=== PATIENT | female | born 2000 | race Caucasian/White ===

== ENCOUNTER 2021-07-24 09:00 | Observation (INO) ==
[2021-07-24] MEDS ORDERED: KETOROLAC TROMETHAMINE 15 MG/ML VIAL IV ONE (10:37)
[2021-07-24] MEDS ORDERED: SODIUM CHLORIDE 0.9% 1000ML 1,000 ML IV ONE (10:37)
--- NOTE | 2021-07-24 10:41 | Emergency Department Note ---
Impression & Plan Pulmonary embolism, Tachycardia, Embolism, pulmonary with infarction ED Provider Note NAME: ABBIE Mena LESSER AGE: 21 SEX: F : 2000 ARRIVES VIA: Walk-In INFORMANT: Patient ED PROVIDER(S): Jack Murguia DO CHIEF COMPLAINT: back pain HPI: Patient is a 21-year-old who presents to the ER for left upper back pain. This started yesterday and has been worsening. She notes this does cause her some shortness of breath. Its worse when she breathes. She denies any lower pain. Does not change with twisting turning or bending. Pain is sharp in nature. No nausea or vomiting. No dysuria urgency or frequency. No other exacerbating or remitting factors. She does admit to a cough, sore throat and some congestion which have been present off and on throughout the past several days. ROS: See above HPI for pertinent positives & negatives. A total of 10 systems reviewed and were otherwise negative. PAST MEDICAL HISTORY:See Below PAST SURGICAL HISTORY:See Below FAMILY HISTORY:See Below SOCIAL HISTORY:See Below HOME MEDICATIONS:See Below ALLERGIES:See Below VITALS:See Below PHYSICAL EXAMINATION: GENERAL: Sitting up in bed, alert, well appearing, well nourished, no distress, non-toxic EYE EXAM: normal conjunctiva. OROPHARYNX: no exudate, no erythema, lips, buccal mucosa, and tongue normal and mucous membranes are moist NECK: supple, no nuchal rigidity, no adenopathy, non-tender LUNGS: Clear to auscultation. Normal chest wall mechanics HEART: no murmurs, S1 normal and S2 normal ABDOMEN: abdomen soft, non-tender, normo-active bowel sounds, no masses, no rebound or guarding. BACK: Back is symmetrical on inspection and there is no deformity, no midline tenderness, no CVA tenderness. UPPER EXTREMITIES: upper extremities are grossly normal. LOWER EXTREMITIES: No pitting edema. Calves are equal bilateral NEURO EXAM: Normal sensorium, cranial nerves II-XII grossly intact, normal speech, no gross weakness of arms, no gross weakness of legs. No drift. Finger to nose intact. Gross sensation intact. MEDICAL DECISION MAKING: Patient is a 21-year-old female who presents the ER for left-sided chest pain including back pain. IV was established blood work was obtained. Labs show chest 14,000. No anemia. Dimer was elevated at 4k. BMP along with LFT's, bilirubin, troponin, was on unremarkable. UA was clean. was negative. Covid was negative. CT angio of the chest shows PEs. Patient was tachycardic initially upon presentation with a heart rate in the 120s. She was given IV fluids. She had no bleeding risk factors and this was discussed with her at bedside. She was placed on a heparin drip and given a heparin bolus. She was updated bedside and discussed with the hospitalist admitted for further work-up. Triage Nursing notes reviewed. Limited review of prior medical records performed Vital Signs: reviewed and remarkable for tachy Differential diagnosis: Differential diagnoses includes but is not limited to lumbar radiculopathy, kid piotr stone, muscle strain, facture, cauda equina, mass, and disc herniation. ER treatment provided: See below Diagnostics interpreted by me: ECG: Sinus tachycardia rate of 114 Normal axis QTC 443 Cardiac Monitoring: An order was placed for continuous cardiac monitoring. The monitor shows a rate of 110 with sinus rhythm. Laboratory studies: As stated above and show below. Imaging studies: CT angios shows PEs Consultation(s): Discussed with Jarred Ramos for admission Procedures: none Critical Care: I have personally spent 32 minutes of critical care time in the direct management of this patient. This includes bedside care, interpretation of diagnostic studies, and testing, discussion with consultants, patient, and family members, and other required patient management activities. This 32 minutes is in excess of all separately billable procedures.3 Past Med/Surg History Medical History PCOS (polycystic ovarian syndrome) Family History Aunt Myocardial infarction Occurred in early 40s Social History Smoking Status: Never smoker Feels Safe at Home: Yes Allergies Allergies Allergy/AdvReac Type Severity Reaction Status Date / Time No Known Allergies Allergy Unverified 07/24/21 11:01 Home Meds Home Medications Medication Instructions Recorded Confirmed ibuprofen 200 mg tablet 400 mg PO Q6H PRN 07/24/21 07/24/21 norethindrone 1 mg-ethin. 1 cap PO PM 07/24/21 07/24/21 estradiol 20 mcg (24)-iron 75 mg (4) capsule (Gemmily) Results & Data (ED) Vital Signs Vital Signs - 24 hr 07/24/21 09:13 07/24/21 11:04 07/24/21 12:53 Temperature 37.3 C Temperature Source Oral Pulse Rate 128 H Pulse Rate [Apical] 91 H 112 H Respiratory Rate 16 18 18 Respiratory Effort / Characteristics Non-Labored Spontaneous Respiratory Depth Normal Blood Pressure 125/81 Blood Pressure [Left Arm] 111/76 111/76 Blood Pressure Mean 95 Blood Pressure Mean [Left Arm] 87 87 Blood Pressure Position Sitting Pulse Oximetry 98 98 98 Oxygen Delivery Method Room Air Room Air Sepsis Recent Fever Within 48 Hours No Sepsis New/Unexplained Change in Mental Status N/A Sepsis Action Taken by Nursing No Action Required Laboratory Data Result diagrams: 07/24/21 11:00 07/24/21 11:00 Lab Results 07/24/21 07/24/21 07/24/21 Range/Units 10:54 11:00 11:00 WBC 14.82 H (4.8-10.8) K/uL RBC 5.04 (4.2-5.4) M/uL Hgb 14.8 (12.0-16.0) g/dL Hct 43.4 (37-47) % MCV 86.1 (80-100) fL MCH 29.4 (25-34) pg MCHC 34.1 (32-36) g/dL RDW Std Deviation 41.9 (36.4-46.3) fL RDW Coeff of Radha 13.3 (11.5-14.5) % Plt Count 348 (130-400) K/uL MPV 9.9 (7.4-10.4) fL Immature Gran % (Auto) 0.2 % Neut % (Auto) 75.2 % Lymph % (Auto) 17.8 % Esmeralda % (Auto) 6.3 % Eos % (Auto) 0.3 % Baso % (Auto) 0.2 % Neut # (Auto) 11.14 H (1.4-6.5) K/uL Lymph # (Auto) 2.64 (1.2-3.4) K/uL Esmeralda # (Auto) 0.93 H (0.11-0.59) K/uL Eos # (Auto) 0.05 (0-0.5) K/uL Baso # (Auto) 0.03 (0-0.2) K/uL Immature Gran # (Auto) 0.03 H (0.00-0.02) K/uL APTT 27.1 (21.0-31.0) Seconds PTT Ratio 1.0 D-Dimer 4190 H* (0-500) ug/L FEU Sodium (136-145) mmol/L Potassium (3.5-5.1) mmol/L Chloride (98-107) mmol/L Carbon Dioxide (21-32) mmol/L Anion Gap (3-11) BUN (7-18) mg/dl Creatinine (0.6-1.2) mg/dl Est Cr Clr Drug Dosing ml/min Est GFR ( Amer) ml/min Est GFR (Non-Af Amer) ml/min BUN/Creatinine Ratio (10-20) Glucose (70-99) mg/dl Calcium (8.5-10.1) mg/dl Total Bilirubin (0.2-1) mg/dl AST (15-37) U/L ALT (12-78) U/L Alkaline Phosphatase (45-117) U/L Troponin I (0-0.045) ng/ml Total Protein (6.4-8.2) gm/dl Albumin (3.4-5.0) gm/dl Globulin (2.5-4.0) gm/dl Albumin/Globulin Ratio (0.9-2) Lipase (73-393) U/L Urine Color Yellow Urine Appearance Clear (Clear) Urine pH 6.0 (4.5-7.5) Ur Specific [place] 1.016 (1.000-1.030) Urine Protein Negative (Negative) Urine Glucose (UA) Negative (Negative) Urine Ketones Negative (Negative) Urine Blood Negative (Negative) Urine Nitrite Negative (Negative) Urine Bilirubin Negative (Negative) Urine Urobilinogen Negative (Negative) Ur Leukocyte Esterase Negative (Negative) POC Ur Test (NEG) COVID-19 Eval Order SARS-CoV-2 (PCR) (Negative) 07/24/21 07/24/21 07/24/21 Range/Units 11:00 12:07 12:07 WBC (4.8-10.8) K/uL RBC (4.2-5.4) M/uL Hgb (12.0-16.0) g/dL Hct (37-47) % MCV (80-100) fL MCH (25-34) pg MCHC (32-36) g/dL RDW Std Deviation (36.4-46.3) fL RDW Coeff of Radha (11.5-14.5) % Plt Count (130-400) K/uL MPV (7.4-10.4) fL Immature Gran % (Auto) % Neut % (Auto) % Lymph % (Auto) % Esmeralda % (Auto) % Eos % (Auto) % Baso % (Auto) % Neut # (Auto) (1.4-6.5) K/uL Lymph # (Auto) (1.2-3.4) K/uL Esmeralda # (Auto) (0.11-0.59) K/uL Eos # (Auto) (0-0.5) K/uL Baso # (Auto) (0-0.2) K/uL Immature Gran # (Auto) (0.00-0.02) K/uL APTT (21.0-31.0) Seconds PTT Ratio D-Dimer (0-500) ug/L FEU Sodium 137 (136-145) mmol/L Potassium 3.8 (3.5-5.1) mmol/L Chloride 106 (98-107) mmol/L Carbon Dioxide 27 (21-32) mmol/L Anion Gap 4.0 (3-11) BUN 7 (7-18) mg/dl Creatinine 0.86 (0.6-1.2) mg/dl Est Cr Clr Drug Dosing 90.1 ml/min Est GFR ( Amer) 112.7 ml/min Est GFR (Non-Af Amer) 97.3 ml/min BUN/Creatinine Ratio 8.0 L (10-20) Glucose 99 (70-99) mg/dl Calcium 9.3 (8.5-10.1) mg/dl Total Bilirubin 0.4 (0.2-1) mg/dl AST 12 L (15-37) U/L ALT 13 (12-78) U/L Alkaline Phosphatase 92 (45-117) U/L Troponin I < 0.015 (0-0.045) ng/ml Total Protein 8.6 H (6.4-8.2) gm/dl Albumin 3.2 L (3.4-5.0) gm/dl Globulin 5.4 H (2.5-4.0) gm/dl Albumin/Globulin Ratio 0.6 L (0.9-2) Lipase 96 (73-393) U/L Urine Color Urine Appearance (Clear) Urine pH (4.5-7.5) Ur Specific [place] (1.000-1.030) Urine Protein (Negative) Urine Glucose (UA) (Negative) Urine Ketones (Negative) Urine Blood (Negative) Urine Nitrite (Negative) Urine Bilirubin (Negative) Urine Urobilinogen (Negative) Ur Leukocyte Esterase (Negative) POC Ur Test (NEG) COVID-19 Eval Order Covid19 at [facility] SARS-CoV-2 (PCR) NEGATIVE (Negative) 07/24/21 Range/Units Unknown WBC (4.8-10.8) K/uL RBC (4.2-5.4) M/uL Hgb (12.0-16.0) g/dL Hct (37-47) % MCV (80-100) fL MCH (25-34) pg MCHC (32-36) g/dL RDW Std Deviation (36.4-46.3) fL RDW Coeff of Radha (11.5-14.5) % Plt Count (130-400) K/uL MPV (7.4-10.4) fL Immature Gran % (Auto) % Neut % (Auto) % Lymph % (Auto) % Esmeralda % (Auto) % Eos % (Auto) % Baso % (Auto) % Neut # (Auto) (1.4-6.5) K/uL Lymph # (Auto) (1.2-3.4) K/uL Esmeralda # (Auto) (0.11-0.59) K/uL Eos # (Auto) (0-0.5) K/uL Baso # (Auto) (0-0.2) K/uL Immature Gran # (Auto) (0.00-0.02) K/uL APTT (21.0-31.0) Seconds PTT Ratio D-Dimer (0-500) ug/L FEU Sodium (136-145) mmol/L Potassium (3.5-5.1) mmol/L Chloride (98-107) mmol/L Carbon Dioxide (21-32) mmol/L Anion Gap (3-11) BUN (7-18) mg/dl Creatinine (0.6-1.2) mg/dl Est Cr Clr Drug Dosing ml/min Est GFR ( Amer) ml/min Est GFR (Non-Af Amer) ml/min BUN/Creatinine Ratio (10-20) Glucose (70-99) mg/dl Calcium (8.5-10.1) mg/dl Total Bilirubin (0.2-1) mg/dl AST (15-37) U/L ALT (12-78) U/L Alkaline Phosphatase (45-117) U/L Troponin I (0-0.045) ng/ml Total Protein (6.4-8.2) gm/dl Albumin (3.4-5.0) gm/dl Globulin (2.5-4.0) gm/dl Albumin/Globulin Ratio (0.9-2) Lipase (73-393) U/L Urine Color Urine Appearance (Clear) Urine pH (4.5-7.5) Ur Specific [place] (1.000-1.030) Urine Protein (Negative) Urine Glucose (UA) (Negative) Urine Ketones (Negative) Urine Blood (Negative) Urine Nitrite (Negative) Urine Bilirubin (Negative) Urine Urobilinogen (Negative) Ur Leukocyte Esterase (Negative) POC Ur Test NEG (NEG) COVID-19 Eval Order SARS-CoV-2 (PCR) (Negative) Administered Medications Heparin Sodium/Dextrose (Heparin Sodium/Dextrose) 25,000 units in 500 mls @ 14 mls/hr IV .Q24H [facility]; Protocol Stop: 08/23/21 12:29 Last Admin: 07/24/21 12:44 Dose: 700 units/hr, 14 mls/hr Documented by: [id number] Cosigned by: [id number] Discontinued Medications Heparin Sodium (Porcine) (Heparin Sod (Porcine) 1000 Unit/Ml) 3,000 units IV NOW ONE Stop: 07/24/21 12:46 Last Admin: 07/24/21 12:44 Dose: 3,000 units Documented by: [id number] Cosigned by: [id number] Sodium Chloride (Nss 1000ml) 1,000 mls @ 999 mls/hr IV .Q1H1M ONE Stop: 07/24/21 11:37 Last Admin: 07/24/21 11:02 Dose: 999 mls/hr Documented by: [id number] Ioversol (Optiray 320 125ml) 120 ml IV ONCE ONE Stop: 07/24/21 11:48 Last Admin: 07/24/21 11:48 Dose: 120 ml Documented by: [id number] Ketorolac Tromethamine (Ketorolac Tromethamine 15 Mg/Ml Vial) 15 mg IV NOW ONE Stop: 07/24/21 10:38 Last Admin: 07/24/21 11:02 Dose: 15 mg Documented by: [id number] Ondansetron HCl (Ondansetron Inj 2 Mg/Ml 2 Ml Vial) 4 mg IV NOW STA Stop: 07/24/21 11:05 Last Admin: 07/24/21 11:37 Dose: Not Given Documented by: [id number] Imaging Data Radiologist's Impression: Chest X-Ray 07/24/21 10:38 XR chest 1V portable HISTORY: Atypical Chest Pain COMPARISON: None. FINDINGS: Mild S-shaped scoliosis of the thoracolumbar spine. The lungs are clear. The heart is normal in size. No pleural effusions. No pneumothorax. IMPRESSION: 1. No acute process within the chest. 2. S-shaped scoliosis. ACT 112: Negative or not required by law. Electronically signed by: Maurice Ochoa M.D. 07/24/2021 11:10 AM Chest CTA 07/24/21 11:33 CT angio chest PE protocol CT DOSE: 226.11 mGy.cm HISTORY: 21 years-old Female with sob +dd. Acute shortness of breath with elevated d-dimer TECHNIQUE: Multiple CTA images of the chest were obtained after the intravenous administration of 120 ml Optiray. Coronal and sagittal MIPS were obtained from the axial data set and were submitted for review. All measurements were obtained according to NASCET criteria. A dose lowering technique was utilized adhering to the principles of ALARA. COMPARISON: Chest radiograph of same day FINDINGS: CTA: Lobar, segmental and subsegmental pulmonary emboli of the left upper and lower lobes. No saddle embolus or definite right-sided pulmonary emboli identified. No evidence of right heart strain. Normal thoracic aorta.Heart size is normal. CT CHEST: Unremarkable thyroid. Residual thymic tissue of the anterior mediastinum. No adenopathy. Trace left pleural effusion. No pneumothorax or overt pulmonary edema. Minimal left lung base atelectasis. Subsegmental consolidation of the inferior segment lingula on image 32 series 4. The central airways are patent. The liver is enlarged with hepatic steatosis. The spleen is upper limits of normal in size. Unremarkable soft tissues. No acute fracture. Mid thoracic dextroscoliosis. IMPRESSION: 1. Lobar, segmental and subsegmental pulmonary emboli of the left upper and l ower lobes. 2. Trace left pleural effusion with mild left lung base atelectasis. 3. Questioned developing pulmonary infarct of the inferior segment lingula. 4. Hepatomegaly with hepatic steatosis. ACT 112: Negative or not required by law. The above report was generated using voice recognition software. It may contain grammatical, syntax or spelling errors. Electronically signed by: Justino Apple M.D. 07/24/2021 12:03 PM Discharge Plan Visit Data Chief Complaint: Back Injury/Pain Stated Complaint: BACK PAIN, RADIATES WITH INHALATION ED Provider: Jack Murguia Discharge Problem: Pulmonary embolism, Tachycardia, Embolism, pulmonary with infarction Patient Disposition: Admitted As Inpatient Forms Stand Alone Forms: [facility] Prescriptions Prescriptions: No Action norethindrone-e.estradiol-iron [Gemmily] 1 mg-20 mcg (24)/75 mg (4) Capsule 1 cap PO PM RF: 0 ibuprofen 200 mg Tablet 400 mg PO Q6H PRN (Reason: Pain) RF: 0 Referrals Referrals: PCP,NO [Physician] -
[2021-07-24] MEDS ORDERED: ONDANSETRON INJ 2 MG/ML 2 ML VIAL IV STA (11:04)
--- NOTE | 2021-07-24 11:11 | XRay Report ---
XR chest 1V portable HISTORY: Atypical Chest Pain COMPARISON: None. FINDINGS: Mild S-shaped scoliosis of the thoracolumbar spine. The lungs are clear. The heart is brian l in size. No pleural effusions. No pneumothorax. IMPRESSION: 1. No acute process within the chest. 2. S-shaped scoliosis. ACT 112: Negative or not required by law. Electronically signed by: Maurice Ochoa M.D. 07/24/2021 11:10 AM
[2021-07-24 11:19] LABS: Partial Thromboplastin Time 27.1 Seconds (21.0-31.0)
[2021-07-24 11:21] LABS: Appearance Urine Clear (Clear); Bilirubin Urine Negative (Negative); Blood Urine Negative (Negative); Color Urine Yellow; Glucose Urine UA Negative (Negative); Ketones Urine Negative (Negative); Leukocyte Esterase Urine Negative (Negative); Nitrite Urine Negative (Negative); Protein Urine Negative (Negative); Specific Gravity Urine 1.016 (1.000-1.030); Urobilinogen Urine Negative (Negative)
[2021-07-24 11:25] LABS: Alanine Aminotransferase 13 U/L (12-78); Albumin Level 3.2 gm/dl (3.4-5.0); Aspartate Aminotransferase 12 U/L (15-37); Blood Urea Nitrogen 7 mg/dl (7-18); Calcium 9.3 mg/dl (8.5-10.1); Carbon Dioxide 27 mmol/L (21-32); Chloride 106 mmol/L (98-107); Creatinine Clr Calc Pharmacy 90.1 ml/min; Est GFR (African American) 112.7 ml/min; Est GFR (Non-African American) 97.3 ml/min; Glucose 99 mg/dl (70-99); Lipase 96 U/L (73-393); Potassium 3.8 mmol/L (3.5-5.1); Sodium 137 mmol/L (136-145)
[2021-07-24 11:27] LABS: Basophils # (auto) 0.03 K/uL (0-0.2); Basophils % (auto) 0.2 %; Eosinophils # (auto) 0.05 K/uL (0-0.5); Eosinophils % (auto) 0.3 %; Hematocrit (blood only) 43.4 % (37-47); Hemoglobin 14.8 g/dL (12.0-16.0); Immature Granulocytes # (auto) 0.03 K/uL (0.00-0.02); Immature Granulocytes % (auto) 0.2 %; Lymphocytes # (auto) 2.64 K/uL (1.2-3.4); Lymphocytes % (auto) 17.8 %; Mean Corpuscular Hemoglobin 29.4 pg (25-34); Mean Corpuscular Hgb Conc 34.1 g/dL (32-36); Mean Corpuscular Volume 86.1 fL (80-100); Mean Platelet Volume 9.9 fL (7.4-10.4); Monocytes # (auto) 0.93 K/uL (0.11-0.59); Monocytes % (auto) 6.3 %; Neutrophils # (auto) 11.14 K/uL (1.4-6.5); Neutrophils % (auto) 75.2 %; Platelet Count 348 K/uL (130-400); RDW Coefficient of Variation 13.3 % (11.5-14.5); RDW Standard Deviation 41.9 fL (36.4-46.3); Red Blood Count 5.04 M/uL (4.2-5.4); White Blood Count 14.82 K/uL (4.8-10.8)
[2021-07-24 11:30] LABS: Albumin Globulin Ratio 0.6 (0.9-2); Alkaline Phosphatase 92 U/L (45-117); Bilirubin,Total 0.4 mg/dl (0.2-1); Globulin 5.4 gm/dl (2.5-4.0); Total Protein 8.6 gm/dl (6.4-8.2); Troponin I < 0.015 ng/ml (0-0.045)
[2021-07-24 11:32] LABS: D Dimer 4190 ug/L FEU (0-500)
[2021-07-24] MEDS ORDERED: OPTIRAY 320 125ml IV ONE (11:47)
--- NOTE | 2021-07-24 12:05 | CT Scan Report ---
CT angio chest PE protocol CT DOSE: 226.11 mGy.cm HISTORY: 21 years-old Female with sob +dd. Acute shortness of breath with elevated d-dimer TECHNIQUE: Multiple CTA images of the chest were obtained after the intravenous administration of 120 ml Optiray. Coronal and sagittal MIPS were obtained from the axial data set and were submitted for review. All measurements were obtained according to NASCET criteria. A dose lowering technique was u tilized adhering to the principles of ALARA. COMPARISON: Chest radiograph of same day FINDINGS: CTA: Lobar, segmental and subsegmental pulmonary emboli of the left upper and lower lobes. No saddle embol us or definite right-sided pulmonary emboli identified. No evidence of right heart strain. Normal tho racic aorta.Heart size is normal. CT CHEST: Unremarkable thyroid. Residual thymic tissue of the anterior mediastinum. No adenopathy. Trace left p leural effusion. No pneumothorax or overt pulmonary edema. Minimal left lung base atelectasis. Subseg mental consolidation of the inferior segment lingula on image 32 series 4. The central airways are pa tent. The liver is enlarged with hepatic steatosis. The spleen is upper limits of normal in size. Unremarka ble soft tissues. No acute fracture. Mid thoracic dextroscoliosis. IMPRESSION: 1. Lobar, segmental and subsegmental pulmonary emboli of the left upper and lower lobes. 2. Trace left pleural effusion with mild left lung base atelectasis. 3. Questioned developing pulmonary infarct of the inferior segment lingula. 4. Hepatomegaly with hepatic steatosis. ACT 112: Negative or not required by law. The above report was generated using voice recognition software. It may contain grammatical, syntax o r spelling errors. Electronically signed by: Justino Apple M.D. 07/24/2021 12:03 PM
[2021-07-24] MEDS ORDERED: Heparin IV Adult Wt-Based Low-Dose WITH Bolus Protocol STA (12:06)
[2021-07-24] MEDS ORDERED: HEPARIN SOD (PORCINE) 1000 UNIT/ML IV ONE ×2 (12:22→12:45)
[2021-07-24] MEDS ORDERED: ACETAMINOPHEN 325 MG TAB PO PRN (12:24)
[2021-07-24] MEDS ORDERED: MAGNESIUM HYDROXIDE SUSP 30 ML UDC PO PRN (12:24)
[2021-07-24] MEDS ORDERED: POLYETHYLENE (MIRALAX) 17 GM PACK PO PRN (12:24)
[2021-07-24] MEDS ORDERED: ALUMINUM/MAGNESIUM SUSP 30 ML UDC PO PRN (12:24)
[2021-07-24] MEDS: HEPARIN SODIUM/DEXTROSE 25,000 UNITS/500 ML BAG IV SCH ×2 (12:44→19:43)
--- NOTE | 2021-07-24 14:14 | History & Physical Report ---
Date of Service July 24, 2021 Assessment & Plan (1) Embolism, pulmonary with infarction: Plan: - Hemodynamically stable - mildly tachycardic but maintaining appropriate saturations on RA - Suspect this is provoked in setting of control and prolonged driving /travel - however aunt may have Factor V which genetically could pre-dispose her - CTA - Lobar, segmental, and subsegmental pulmonary emboli of the L upper and lower lobes; trace left pleural effusion with mild L lung base atelectasis; possibly developing pulmonary infarct of the inferior segment lingula; hepatomegaly with hepatic steatosis - U/S B/L lower legs to assess for further clot burden - Monitor labs; will send for Factor V testing however this could be skewed given current clot burden and already initiated on anti-coagulation - Continue heparin gtt at this time - likely convert to Xarelto on D/C and will run through her pharmacy for affordability - anticipate treatment 3-6 months (2) PCOS (polycystic ovarian syndrome): Plan: - Follows with [facility] in [place] - Hold control - discussed with patient that she may need to discuss with her C[employer]BLER in regards to options moving forward -- Some will utilize progestin-only pill (Minipill) but would recommend holing on hormone-based treatment currently Plan: - Maintain heparin gtt - plan to convert to Xarelto in AM; if remaining hemodynamically stable can likely D/C tomorrow History of Present Illness Chief Complaint: Back Pain Primary Care Provider: [facility] Ms. Madsen is a 21 y/o female with PMHx of PCOS who presents for worsening upper back pain that started yesterday. States she had upper back pain that progressed to under her L shoulder blade that was severe this AM. She took Ibuprofen around 0730 with mild relief of pain. Pain is described as sharp in nature. She does associate some mild shortness of breath. Associated pleuritic chest pain. She did have some L upper thigh/gluteal pain a couple days prior that has completely resolved. She does report a cough, sore throat, and some congestion that has been off and on prior to presentation. She has never head a blood clot in the past. She has been on BC x approx. 2 years and follows with [facility] in [place]. She does report her aunt had a heart attack in her 40s but also appears to have had Factor V. She did recently drive from [place] a couple weeks back and took a flight in May to [place]. She is mildly tachycardic but saturations are appropriate on room air. She is hemodynamically stable. Allergies Allergy/AdvReac Type Severity Reaction Status Date / Time No Known Allergies Allergy Unverified 07/24/21 11:01 Home Medications Medication Instructions Recorded Confirmed Type ibuprofen 200 mg tablet 400 mg PO Q6H PRN 07/24/21 07/24/21 History norethindrone 1 mg-ethin. 1 cap PO PM 07/24/21 07/24/21 History estradiol 20 mcg (24)-iron 75 mg (4) capsule (Gemmily) Past Med/Surg History Medical History PCOS (polycystic ovarian syndrome) Family History (Updated 07/24/21 @ 16:01 by Carmela Greco PA-C) Aunt Myocardial infarction Occurred in early 40s Factor V Leiden Social History Smoking Status: Never smoker Hx Alcohol Use: Yes Alcohol type: beer Hx Substance Use: No Preferred Language: [place] Beliefs That Will Affect Care: None Current Living Situation: Other Current Living Situation Comment: [facility] Student Feels Safe at Home: Yes Safety Concerns: Feels Safe At This Time Assistive Devices: None Review of Systems Review of Systems: REVIEW OF SYSTEMS General/Constitutional: Denies fever/chills ENT: Denies visual changes, nasal drainage, hearing loss, sore throat, trouble swallowing Cardiovascular: Denies chest pain, palpitations, edema Respiratory: + pleuritic chest pain; +mild SOB; Denies cough, sputum, wheezing, orthopnea GI: Denies nausea, vomiting, abdominal pain, constipation, diarrhea, melena/hematochezia : Denies dysuria Musculoskeletal: + had L thigh/gluteal pain a few days ago (resolved); Denies other joint/muscle aches, weakness, swelling Neurologic: Denies dizziness/lightheadedness, numbness/tingling, weakness Hematologic/Lymphatic: Denies bleeding/clotting abnormalities personally but possible aunt with Factor V Skin: Denies rash, itch Physical Exam Physical Exam: PHYSICAL EXAM General Appearance: WDWN in NAD who is A&O x 3 HEENT: Head is normocephalic/atraumatic; EOMI; PERRLA; Hearing grossly intact; Mucous membranes moist; Pharynx negative for exudate/lesions Neck: Supple; Trachea midline; Neg JVD; Neg lymphadenopathy Heart: Mildly tachycardic but regular rhythm with no M/G/R Lungs: CTA in all lung schaeffer bilaterally; Respirations unlabored; Neg accessory muscle use Abdomen: Soft, non-tender, non-distended; Positive BS x 4 quadrants; Neg organomegaly Extremities: Capillary refill < 2 seconds; Neg cyanosis or edema Neurological: Speech clear; Gross motor/sensory function intact; Neg focal neurologic deficits Psychiatric: Appropriate mood/affect Skin: Normal Color; Warm/Dry Results & Data Results & Data ([facility]) Vital Signs (Past 12 Hours) Vital Signs Temp Pulse Pulse Resp BP BP Pulse Ox 07/24/21 12:53 112 H 18 111/76 98 07/24/21 11:04 91 H 18 111/76 98 07/24/21 09:13 37.3 C 128 H 16 125/81 98 Code Status & VTE Plan Code Status FULL CODE VTE Prophylaxis Plan VTE Prophylaxis will be ordered: Yes Supervising Physician Co-Signing Physician Notes Attending note: patient seen and examined with Carmela FISCHER. I personally discussed with Dr. Murguia in the ED. I reviewed the labs and imaging, including CTA of the chest showing left sided pulmonary emboli. Patient feeling okay, c/o some back pain, left posterior chest pain that radiates to her left shoulder and chest. No dyspnea right now, felt some last night. she confirms she had some transient left thigh pain last week. discussed risk factors for VTE: she is on control for her PCOS, she was on a long plane right in May to [place]. She was on another plane right to [place]. Car ride to [place] from [place] for school. She says that her aunt has Factor V Leiden mutation. - Left sided pulmonary emboli, lobular, segmental and subsegmental with infarction in lingula lobe submassive PE, vitals stable, no central filling defects did have risk with long plane ride coupled with control medications will check Factor V mutation since she has family history heparin drip tonight, plan for Xarelto 15mg BID starting tomorrow AM pain control with Toradol, Percocet as needed, likely source of pain is the infarction will work to get her home tomorrow check venous dopplers bilaterally to look for DVT PG Care Time/CCT Total # of Minutes Spent Total Time Spent with Patient: Total time spent is greater than 50% in coordination of care (as documented) at patient's floor/unit and/or counseling patient: Coding Level of Care Code INT OBSERVATION CARE 50M LVL 2 Diagnoses PCOS (polycystic ovarian syndrome) E28.2 Embolism, pulmonary with infarction I26.99
[2021-07-24] MEDS ORDERED: FLUARIX QUADRIVALENT 0.5 ML SYR IM ONE (16:55)
[2021-07-24] MEDS ORDERED: oxyCODONE HCL IR 5 MG TAB (IMMEDIATE RELEASE) PO PRN (17:03)
[2021-07-24] MEDS ORDERED: KETOROLAC TROMETHAMINE 15 MG/ML VIAL IV STA (17:04)
[2021-07-24] MEDS ORDERED: KETOROLAC TROMETHAMINE 15 MG/ML VIAL ONE (17:07)
--- NOTE | 2021-07-24 18:12 | Ultrasound Report ---
ULTRASOUND BILATERAL LOWER EXTREMITY VENOUS CLINICAL HISTORY: Elevated d-dimer. Pulmonary embolus. COMPARISON STUDY: No priors. TECHNIQUE: Real-time, grayscale, and color Doppler sonography of the deep veins of the right and left lower extremity was performed from the inguinal crease to the calf. Compression and augmentation wer e utilized. FINDINGS: There is no sonographic evidence of deep venous thrombosis identified in the right or left lower extremity. The common femoral, superficial femoral, and popliteal veins are patent and normally compressible bilaterally. The greater saphenous vein and the profunda femoris vein at the junction w ith the common femoral vein are clear in both legs. The visualized calf veins are patent bilaterally. IMPRESSION: There is no sonographic evidence of deep venous thrombosis identified in the right or lef t lower extremity. ACT 112: Negative or not required by law. Electronically signed by: Adam Faria M.D. 07/24/2021 6:11 PM
[2021-07-24] MEDS: ACETAMINOPHEN 500 MG TAB PO SCH (18:19)
[2021-07-24 19:14] LABS: Partial Thromboplastin Ratio 1.1; Partial Thromboplastin Time 28.8 Seconds (21.0-31.0)
[2021-07-24] MEDS ORDERED: HEPARIN SOD (PORCINE) 1000 UNIT/ML IV STA (19:45)
[2021-07-24] MEDS: KETOROLAC TROMETHAMINE 15 MG/ML VIAL IV PRN (23:03)
[2021-07-25] MEDS: ACETAMINOPHEN 500 MG TAB PO SCH ×2 (02:00→09:17)
[2021-07-25] MEDS ORDERED: HYDROmorphone INJ 0.5 MG/0.5 ML SYR ONE (02:56)
[2021-07-25] MEDS ORDERED: HYDROmorphone INJ 0.5 MG/0.5 ML SYR IV PRN (03:06)
[2021-07-25 03:14] LABS: Partial Thromboplastin Ratio 1.5; Partial Thromboplastin Time 39.5 Seconds (21.0-31.0)
--- NOTE | 2021-07-25 05:36 | Electrocardiogram Report ---
Test Reason : Blood Pressure : / mmHG Vent. Rate : 114 BPM Atrial Rate : 114 BPM P-R Int : 126 ms QRS Dur : 074 ms QT Int : 322 ms P-R-T Axes : 074 048 035 degrees QTc Int : 443 ms Sinus tachycardia Otherwise normal ECG No previous ECGs available Confirmed by Luiz Goncalves ([id number]) on 07/25/2021 5:35:56 AM Referred By: REFERRED SELF Confirmed By:Luiz Goncalves
[2021-07-25] MEDS ORDERED: [UNRECOGNIZED DRUG - REMARK] ONE (08:59)
[2021-07-25] MEDS ORDERED: RIVAROXABAN 15 MG TAB PO SCH ×2 (09:00→11:15)
[2021-07-25] MEDS: KETOROLAC TROMETHAMINE 15 MG/ML VIAL IV PRN (09:14)
[2021-07-25 09:36] LABS: Hematocrit (blood only) 40.2 % (37-47); Hemoglobin 13.5 g/dL (12.0-16.0); Mean Corpuscular Hgb Conc 33.6 g/dL (32-36); Mean Corpuscular Volume 86.5 fL (80-100); Mean Platelet Volume 9.7 fL (7.4-10.4); Platelet Count 362 K/uL (130-400); RDW Coefficient of Variation 13.5 % (11.5-14.5); RDW Standard Deviation 42.6 fL (36.4-46.3); Red Blood Count 4.65 M/uL (4.2-5.4); White Blood Count 13.27 K/uL (4.8-10.8)
[2021-07-25 09:50] LABS: Partial Thromboplastin Ratio 1.3; Partial Thromboplastin Time 34.7 Seconds (21.0-31.0)
[2021-07-25 10:04] LABS: Calcium 9.1 mg/dl (8.5-10.1)
[2021-07-25 10:51] LABS: Creatinine Clr Calc Pharmacy 96.9 ml/min; Est GFR (Non-African American) 106.1 ml/min
[2021-07-25] MEDS ORDERED: FLUARIX QUADRIVALENT 0.5 ML SYR IM ONE (12:30)
--- NOTE | 2021-07-25 15:14 | Discharge Summary ---
Date of Service July 25, 2021 Admission HPI Per Admitting Provider Ms. Madsen is a 21 y/o female with PMHx of PCOS who presents for worsening upper back pain that started yesterday. States she had upper back pain that progressed to under her L shoulder blade that was severe this AM. She took Ibuprofen around 0730 with mild relief of pain. Pain is described as sharp in nature. She does associate some mild shortness of breath. Associated pleuritic chest pain. She did have some L upper thigh/gluteal pain a couple days prior that has completely resolved. She does report a cough, sore throat, and some congestion that has been off and on prior to presentation. She has never head a blood clot in the past. She has been on BC x approx. 2 years and follows with [facility] in [place]. She does report her aunt had a heart attack in her 40s but also appears to have had Factor V. She did recently drive from [place] a couple weeks back and took a flight in May to [place]. She is mildly tachycardic but saturations are appropriate on room air. She is hemodynamically stable. Principal Diagnosis Pulmonary Emboli Discharge Exam PHYSICAL EXAM General Appearance: [facility] in [facility] who is A&O x 3 HEENT: Head is normocephalic/atraumatic; Hearing grossly intact; Mucous membranes moist Neck: Supple; Trachea midline; Neg JVD Heart: RRR with no M/G/R Lungs: CTA in all lung schaeffer bilaterally; Respirations unlabored; Neg accessory muscle use Abdomen: Soft, non-tender, non-distended; Positive BS x 4 quadrants; Neg organomegaly Extremities: Capillary refill < 2 seconds; Neg cyanosis or edema Neurological: Speech clear; Gross motor/sensory function intact; Neg focal neurologic deficits Psychiatric: Appropriate mood/affect Skin: Normal Color; Warm/Dry Discharge Data Allergies Allergy/AdvReac Type Severity Reaction Status Date / Time No Known Allergies Allergy Unverified 07/24/21 11:01 Consultations 07/24/21 12:07 ED Decision to Admit Stat 07/25/21 09:19 Burn CD for patient Routine Ordered Studies Venous Doppler Study 07/24/21 00:00 ULTRASOUND BILATERAL LOWER EXTREMITY VENOUS CLINICAL HISTORY: Elevated d-dimer. Pulmonary embolus. COMPARISON STUDY: No priors. TECHNIQUE: Real-time, grayscale, and color Doppler sonography of the deep veins of the right and left lower extremity was performed from the inguinal crease to the calf. Compression and augmentation were utilized. FINDINGS: There is no sonographic evidence of deep venous thrombosis identified in the right or left lower extremity. The common femoral, superficial femoral, and popliteal veins are patent and normally compressible bilaterally. The greater saphenous vein and the profunda femoris vein at the junction with the common femoral vein are clear in both legs. The visualized calf veins are patent bilaterally. IMPRESSION: There is no sonographic evidence of deep venous thrombosis identified in the right or left lower extremity. ACT 112: Negative or not required by law. Electronically signed by: Adam Fraia M.D. 07/24/2021 6:11 PM Chest X-Ray 07/24/21 10:38 XR chest 1V portable HISTORY: Atypical Chest Pain COMPARISON: None. FINDINGS: Mild S-shaped scoliosis of the thoracolumbar spine. The lungs are clear. The heart is normal in size. No pleural effusions. No pneumothorax. IMPRESSION: 1. No acute process within the chest. 2. S-shaped scoliosis. ACT 112: Negative or not required by law. Electronically signed by: Maurice Ochoa M.D. 07/24/2021 11:10 AM Chest CTA 07/24/21 11:33 CT angio chest PE protocol CT DOSE: 226.11 mGy.cm HISTORY: 21 years-old Female with sob +dd. Acute shortness of breath with elevated d-dimer TECHNIQUE: Multiple CTA images of the chest were obtained after the intravenous administration of 120 ml Optiray. Coronal and sagittal MIPS were obtained from the axial data set and were submitted for review. All measurements were obtained according to NASCET criteria. A dose lowering technique was utilized adhering to the principles of ALARA. COMPARISON: Chest radiograph of same day FINDINGS: CTA: Lobar, segmental and subsegmental pulmonary emboli of the left upper and lower lobes. No saddle embolus or definite right-sided pulmonary emboli identified. No evidence of right heart strain. Normal thoracic aorta.Heart size is normal. CT CHEST: Unremarkable thyroid. Residual thymic tissue of the anterior mediastinum. No adenopathy. Trace left pleural effusion. No pneumothorax or overt pulmonary edema. Minimal left lung base atelectasis. Subsegmental consolidation of the inferior segment lingula on image 32 series 4. The central airways are patent. The liver is enlarged with hepatic steatosis. The spleen is upper limits of normal in size. Unremarkable soft tissues. No acute fracture. Mid thoracic dextroscoliosis. IMPRESSION: 1. Lobar, segmental and subsegmental pulmonary emboli of the left upper and lower lobes. 2. Trace left pleural effusion with mild left lung base atelectasis. 3. Questioned developing pulmonary infarct of the inferior segment lingula. 4. Hepatomegaly with hepatic steatosis. ACT 112: Negative or not required by law. The above report was generated using voice recognition software. It may contain grammatical, syntax or spelling errors. Electronically signed by: Justino Apple M.D. 07/24/2021 12:03 PM Hospital Course (1) Embolism, pulmonary with infarction: - Hemodynamically stable - mildly tachycardic but maintaining appropriate saturations on RA - Suspect this is provoked in setting of control and prolonged driving/travel - however aunt may have Factor V which genetically could pre-d ispose her - CTA - Lobar, segmental, and subsegmental pulmonary emboli of the L upper and lower lobes; trace left pleural effusion with mild L lung base atelectasis; possibly developing pulmonary infarct of the inferior segment lingula; hepatomegaly with hepatic steatosis - U/S B/L lower legs without any additional DVTs - Will send for Factor V testing however this could be skewed given current clot burden and already initiated on anti-coagulation - Convert to Xarelto 15 mg BID x 21 days then 20 mg daily - anticipate treatment 3-6 months -- Sent for start pack Xarelto - also sent for Rx for additional months of Xarelto 20 mg daily after she completes the first 21 days - Pain control with CUAET Tylenol - Toradol x 3 days but advised to avoid frequent NSAIDs; Oxycodone PRN - Plan also discussed with mom with patient's permission (2) PCOS (polycystic ovarian syndrome): - Follows with [facility] in [place] - Hold control - discussed with patient that she may need to discuss with her [employer] in regards to options moving forward -- Some will utilize progestin-only pill (Minipill) but would recommend holding on hormone-based treatment currently - CTA shows fatty liver which could be in the setting of PCOS. Advised her on lifestyle modifications to help control and reverse this Total Time Total Time Spent Total Time Spent (In Minutes): Spent greater than 30 minutes preparing patient for discharge. This includes discussion with patient/family, assessment, intervention, medication reconciliation, and coordination of care. Discharge Plan Discharge Items Patient Disposition: Home - Self-Care Reason For Visit: BACK PAIN, RADIATES WITH INHALATION Discharge Diagnosis: Pulmonary Embolism (Blood Clot into the Lung Blood Vessels) Activity: As commented below Lifting: Gradually increase as tolerated Bathing: No limitations Sexual Activity: When tolerated Exercise/Sports: Gradually increase as tolerated Driving/Machine Use: No limitations Non-emergency contact: Primary Care Provider Call non-emergency contact if: you have any medication questions, your symptoms worsen and you have a fever Follow-up/Referrals: [facility] [Primary Care Provider] - Diet: Regular Addtl Attending Provider Instructions: Pulmonary Embolism - You were admitted due to having blood clots that traveled to the blood vessels of your lungs. They are located in the left lung and that is why you had that back pain. Typically these come from clots that formed in the legs called (DVTs). We did ultrasounds of both legs and there are no clots in there now but they could have been there prior to moving to your lungs. - However, given your family history there is a chance you could have a genetic condition that pre-disposes you to clots. There are several different types of genetic conditions but Factor V is one of the most common - Unfortunately, blood thinners and having active clots can skew the test results to a degree and may be worth having testing once you finish treatment for these clots. - For pain it may be best to take Tylenol 1000 mg three times a day for the next 2-3 days to help keep pain down. We will also give you additional pain medication for more severe pain. If you have to take a narcotic pain medication due not drive a vehicle -- You may still use ibuprofen intermittently for pain but if you are having pain that requires multiple doses every day for a couple days please see [facility] as too much Ibuprofen/Advil/Motrin/Aspirin/Aleve can cause stomach ulcers -- Do not use any additional ibuprofen while using Toradol - You may resume your normal activities (NO CONTACT SPORTS). Your endurance may be a bit down until your lungs recover but walking and weight training is okay to do. Just gradually increase as tolerated. If you feel winded just rest until you feel better. - While on a blood thinner you need to watch for signs of bleeding. If you develop black tarry stools please have this evaluated. If you develop shortness of breath or worsening pain please get this evaluated as well. - Being on a blood thinner will help prevent further clots. You can also go on car rides that are long. We recommend just making intermittent stops to get up and walk around....a few minutes of walking around is sufficient. - For the Xarelto (blood thinner) -- You will take Xarelto 15 mg twice a day for the first 21 days. We will send you with a couple tablets from the hospital as [facility] will not have the pack until tomorrow. -- You had one dose this morning so you only need to take one tablet this evening. On 07/26 you will take one in the morning and then you can start the dose pack from the pharmacy. Today is day 1 of the 21 days. PCOS: - Stop your control at this time. Your geothermal installer is already aware. Please follow-up with them on how to further manage PCOS as they would be the experts with that - Your scan of your chest did see that you have some hepatic steatosis which is a medical term for some fat on the liver. This is common with PCOS because it impacts your metabolism. However, many people have this because of the diets we eat in the [place] - There is nothing directly you need to do with this but you can influence by eating a well balanced diet avoid fried and overly fatty foods, getting regular exercise, and maintaining a healthy weight. Being mindful of alcohol intake as well can help stop fatty liver. Hepatic steatosis is reversible through lifestyle modifications. Pending Studies at Discharge: Yes Studies:: Factor V - This is a send out lab and can take some time to come back Stand-Alone Forms: My [facility] [employer], Work/School Release, Smoking Ce ssation Medications and DC Order Prescriptions: New rivaroxaban 15 mg (42)- 20 mg (9) tablets,dose pack See Rx Instructions .ROUTE .COMPLEX Qty: 51 RF: 0 ketorolac 10 mg tablet 10 mg PO Q6H PRN (Reason: pain) 3 Days Qty: 12 RF: 0 Xarelto 20 mg tablet 20 mg PO DAILY 30 Days Qty: 30 RF: 2 oxycodone 5 mg Tablet 5 mg PO Q6H PRN (Reason: pain) 3 Days Qty: 12 RF: 0 Discontinued norethindrone-e.estradiol-iron [Gemmily] 1 mg-20 mcg (24)/75 mg (4) Capsule 1 cap PO PM RF: 0 ibuprofen 200 mg Tablet 400 mg PO Q6H PRN (Reason: Pain) RF: 0 Discharge Orders: Discharge Order (Routine); Ordered 07/25/21 Ordered By: Jarred Mcmullen/Other Patient Handouts: Pulmonary Embolism, Embolism Pulmonary Dc Admission Data Admit Date/Time: 07/24/21 12:24 Attending Provider: Jarred Ramos Admit Provider: Jarred Ramos Primary Care Provider: [facility] Other Providers: Jarred Ramos Other Interventions: Discharge Summary Assessment (RN) Last Done: 07/25/21 12:05 Supervising Physician Co-Signing Physician Notes Attending note: patient seen and examined with Carmela Greco PA-C. I agree with her discharge summary. I personally reviewed the labs and imaging findings. patient feeling better this morning, less pain than before, controlled with oxycodone breathing comfortably, has some dyspnea on exertion, explained that will take some time to resolve will send home on Xarelto, discussed that her factor V test will be pending, can follow up results - Left sided pulmonary emboli negative for DVT bilaterally risk factors include oral control, long flight in May to [place], recent car trips she has an aunt with Factor V mutation, she was tested, results pending treated with heparin drip initially, will now place on Xarelto 15mg BID x 21 days then 20mg daily recommend at least 6 months of treatment hold control, she should follow up with her geothermal installer for their recommendation Coding Level of Care Code D/C DAY MANAGEMENT >30 MINS Diagnoses Embolism, pulmonary with infarction I26.99 PCOS (polycystic ovarian syndrome) E28.2
[2021-07-29 23:32] LABS: Factor 5 Mutation POSITIVE
== END 2021-07-25 14:09 | disposition home or self-care (01) ==
LOC: ED 09:00 → 2N 09:00